=== PATIENT | female | born 1990 | race Hispanic/Latino ===

== ENCOUNTER → 2017-03-28 | Outpatient (REF) | payer OTHER | LOC: M SFHCLERA 11:27 | DX: J02.9 Acute pharyngitis, unspecified (principal) ==

== ENCOUNTER 2018-03-07 10:48 | Emergency (ER) | payer OTHER ==
[~2018-03-07] VITALS: Ht 167.6 cm; Wt 113.6 kg
[2018-03-07] MEDS ORDERED: PRED50TA (10:56)
[2018-03-07] MEDS ORDERED: MINO100C4 (10:56)
[2018-03-07] MEDS ORDERED: RANI-280 (10:56)
[2018-03-07] MEDS ORDERED: BENA25CA4 PO (10:56)
[2018-03-07] MEDS ORDERED: methylPREDNISolone INJ 125 MG/2 ML VIAL (J2930) IV ONE (11:30)
[2018-03-07] MEDS ORDERED: FAMOTIDINE INJ 20MG/2ML VIAL (S0028) IVP ONE (11:30)
[2018-03-07] MEDS ORDERED: diphenhydrAMINE INJ 50MG/ML VIAL (J1200) IV ONE (11:30)
[2018-03-07] MEDS ORDERED: PRED20TA PO (12:21)
[2018-03-07 12:31] VITALS: BP 116/69
== END 2018-03-07 12:32 | disposition home or self-care (01) ==
LOC: M ED 10:48
DX: L50.1 Idiopathic urticaria (principal); Z79.899 Other long term (current) drug therapy; Z79.52 Long term (current) use of systemic steroids
CPT/HCPCS: 81025; 96374; 96375; 99284; J1200; J2930

== ENCOUNTER → 2018-05-04 | Outpatient (REF) | payer OTHER ==
[~2018-05-04] MED LIST: BENA25CA4 PO; MINO100C4; PRED20TA PO; PRED50TA; RANI-280
== END ==
LOC: M SFHCLERA 10:33
PROVIDERS: ATTEND Physician Assistant
DX: R50.9 Fever, unspecified (principal)